=== PATIENT | male | born 1945 | race Caucasian/White ===

== ENCOUNTER 2018-01-30 23:12 | Emergency (ER) | payer MEDICARE ==
[~2018-01-30] VITALS: Ht 172.7 cm; Wt 61.5 kg
[2018-01-30] MEDS ORDERED: ACETAMINOPHEN 325MG TABLET PO STA (23:53)
[2018-01-31 00:22] LABS: BASOPHILS % 0.8 % (0.0-2.0); EOSINOPHILS % 0.1 % (0.0-5.0); LYMPHOCYTES % 7.9 % (20.0-50.0); MEAN CORPUSCULAR HEMOGLOBIN 29.2 pg (28.0-32.0); MEAN CORPUSCULAR VOLUME 87.8 fL (80.0-94.0); MEAN PLATELET VOLUME 7.8 fl (7.4-10.4); MONOCYTES % 6.9 % (2.0-8.0); NEUTROPHILS % 84.3 % (40.0-76.0); PLATELET 312 x1000/uL (130-400)
[2018-01-31 00:30] LABS: CHLORIDE 103 mEq/L (98-107)
[2018-01-31 00:31] LABS: PROTHROMBIN TIME 10.5 sec (9.4-11.6)
[2018-01-31 00:38] LABS: CLARITY URINE CLEAR (CLEAR); COLOR URINE DARK YELLOW (YELLOW); KETONES URINE NEGATIVE (NEGATIVE); LEUKOCYTE ESTERASE URINE TRACE (NEGATIVE); NITRITE URINE NEGATIVE (NEGATIVE); OCCULT BLOOD URINE NEGATIVE (NEGATIVE); PROTEIN URINE TRACE (NEGATIVE); SPECIFIC GRAVITY URINE 1.022 (1.005-1.030)
[2018-01-31] MEDS ORDERED: CEFTRIAXONE 1 G PREMIX 50 ML IV NR (01:00)
[2018-01-31 01:50] VITALS: BP 106/66
== END 2018-01-31 01:50 | disposition home or self-care (01) ==
LOC: ER 23:12 → CANBEDREQ 01-31 05:06
DX: N39.0 Urinary tract infection, site not specified (principal); F50.9 Eating disorder, unspecified
CPT/HCPCS: 36415; 71045; 80053; 81003; 83605; 85025; 85610; 87040; 87086; 93005; 96365; 99285; J0696

== ENCOUNTER 2018-03-16 17:27 | Emergency (ER) | payer MEDICARE, OTHER ==
[~2018-03-16] VITALS: Ht 175.3 cm; Wt 59.3 kg
[2018-03-16 23:18] LABS: CLARITY URINE CLEAR (CLEAR); COLOR URINE DARK YELLOW (YELLOW); KETONES URINE TRACE (NEGATIVE); LEUKOCYTE ESTERASE URINE TRACE (NEGATIVE); NITRITE URINE NEGATIVE (NEGATIVE); OCCULT BLOOD URINE NEGATIVE (NEGATIVE); PH URINE 6.5 (4.5-8.0); PROTEIN URINE NEGATIVE (NEGATIVE); SPECIFIC GRAVITY URINE 1.016 (1.005-1.030)
[2018-03-17 00:59] VITALS: BP 104/62
== END 2018-03-17 01:01 | disposition home or self-care (01) ==
LOC: ER 19:57
DX: N39.0 Urinary tract infection, site not specified (principal)
CPT/HCPCS: 81003; 99283

== ENCOUNTER 2018-10-13 19:58 | Emergency (ER) | payer OTHER ==
[~2018-10-13] VITALS: Ht 170.2 cm; Wt 62.0 kg
[2018-10-13 23:34] VITALS: BP 135/62
== END 2018-10-13 23:35 | disposition home or self-care (01) ==
LOC: ER 19:58
DX: H91.93 Unspecified hearing loss, bilateral (principal); H69.91 Unspecified Eustachian tube disorder, right ear; T70.29XA Other effects of high altitude, initial encounter; X58.XXXA Exposure to other specified factors, initial encounter
CPT/HCPCS: 99283

== ENCOUNTER 2020-08-23 04:42 | Emergency (ER) | payer OTHER ==
[~2020-08-23] VITALS: Ht 177.8 cm; Wt 75.0 kg
[2020-08-23] MEDS ORDERED: SODIUM CHLORIDE 0.9% 1,000 ML IV ONE (05:30)
[2020-08-23 06:33] LABS: BASOPHILS % 1.2 % (0.0-2.0); EOSINOPHILS % 1.3 % (0.0-5.0); HEMATOCRIT. 41.5 % (42.0-52.0); HEMOGLOBIN. 13.6 g/dL (14.0-18.0); LYMPHOCYTES % 21.1 % (20.0-50.0); MEAN CORPUSCULAR HEMOGLOBIN 28.5 pg (28.0-32.0); MEAN CORPUSCULAR VOLUME 87.2 fL (80.0-94.0); MONOCYTES % 7.2 % (2.0-8.0); NEUTROPHILS % 69.2 % (40.0-76.0); PLATELET 172 x1000/uL (130-400); RED BLOOD CELL COUNT 4.77 mill/uL (4.7-6.1); RED CELL DISTRIBUTION WIDTH 14.9 % (11.6-14.6)
[2020-08-23 06:35] LABS: CLARITY URINE CLEAR (CLEAR); COLOR URINE YELLOW (YELLOW); KETONES URINE 1+ (NEGATIVE); LEUKOCYTE ESTERASE URINE NEGATIVE (NEGATIVE); NITRITE URINE NEGATIVE (NEGATIVE); OCCULT BLOOD URINE NEGATIVE (NEGATIVE); PH URINE 5.5 (4.5-8.0); PROTEIN URINE NEGATIVE (NEGATIVE); SPECIFIC GRAVITY URINE 1.019 (1.005-1.030); UROBILINOGEN URINE 0.2 E.U./dL (0.2-1.0)
[2020-08-23 06:39] LABS: CHLORIDE 107 mEq/L (98-107)
[2020-08-23] MEDS ORDERED: MORPHINE SULFATE 4 MG/ML CPJ (NOT FOR IM USE) IV ONE (07:15)
[2020-08-23 12:15] VITALS: BP 126/59
== END 2020-08-23 12:34 | disposition home or self-care (01) ==
LOC: ER 05:02
DX: K80.20 Calculus of gallbladder without cholecystitis without obstruction (principal); Z87.19 Personal history of other diseases of the digestive system
CPT/HCPCS: 36415; 71045; 76705; 80053; 81003; 83690; 85025; 93005; 96361; 96374; 99285; J2270; J7030

== ENCOUNTER 2022-08-23 12:49 | Emergency (ER) | payer OTHER ==
[~2022-08-23] VITALS: Ht 167.6 cm; Wt 73.0 kg
[2022-08-23] MEDS ORDERED: OXYCODONE HCL/ACETAMINOPHEN 5/325MG TABLET PO ONE ×2 (15:00→20:45)
[2022-08-23] MEDS ORDERED: MORPHINE SULFATE 4 MG/ML CPJ (NOT FOR IM USE) IV ONE (17:15)
[2022-08-23] MEDS ORDERED: OXYC-100 MT (18:35)
[2022-08-23] MEDS ORDERED: IBUP-2028 MT (18:38)
[2022-08-23] MEDS ORDERED: TOPUD MT (18:38)
[2022-08-23 20:00] VITALS: BP 117/60
== END 2022-08-23 21:10 | disposition home or self-care (01) ==
LOC: ER 12:49 → CANBEDREQ 08-24 11:50
DX: M79.601 Pain in right arm (principal); M25.511 Pain in right shoulder; R51.9 Headache, unspecified; Y00.XXXA Assault by blunt object, initial encounter; Y93.89 Activity, other specified; Y92.89 Other specified places as the place of occurrence of the external cause; Y99.8 Other external cause status
CPT/HCPCS: 71045; 73030; 73060; 73070; 73090; 99284; A4565; J2270